=== PATIENT | male | born 1990 ===

== ENCOUNTER 2024-01-10 09:25 | Emergency (ER) | payer OTHER ==
[~2024-01-10] VITALS: Ht 177.8 cm; Wt 129.3 kg
[2024-01-10] MEDS ORDERED: AMPDEX5 PO (10:28)
[2024-01-10 13:00] VITALS: BP 124/71
[2024-01-10] MEDS ORDERED: Ketorolac Tromethamine 15mg Vial IV ONE (13:00)
[2024-01-10] MEDS ORDERED: Prochlorperazine Edisylate 10 mg Vial IV ONE (13:00)
== END 2024-01-10 13:20 | disposition home or self-care (01) ==
LOC: ER 09:25
DX: S06.0XAA Concussion with loss of consciousness status unknown, initial encounter (principal); W22.8XXA Striking against or struck by other objects, initial encounter; Z79.899 Other long term (current) drug therapy
CPT/HCPCS: 70450; 70498; 96374-59; 96375; 99284-25; J0780; J1885; Q9967

== ENCOUNTER → 2024-12-02 | Outpatient (CLI) | payer OTHER ==
[~2024-12-02] MED LIST: AMPDEX5 PO
[2024-12-02 11:10] LABS: BASOPHILS ABSOLUTE AUTO 0.02 K/mm3 (0.00-0.23); BASOPHILS PERCENT AUTO 0 % (0-2); EOSINOPHILS ABSOLUTE AUTO 0.04 K/mm3 (0.00-0.68); EOSINOPHILS PERCENT AUTO 1 % (0-6); Hematocrit 52.1 % (37.0-53.0); Hemoglobin 17.6 g/dL (13.5-17.5); IMMATURE GRAN ABSOLUTE AUTO 0.02 K/mm3 (0.00-0.10); IMMATURE GRAN PERCENT AUTO 0 % (0-1); LYMPHOCYTES ABSOLUTE AUTO 0.93 K/mm3 (0.84-5.20); LYMPHOCYTES PERCENT AUTO 13 % (21-46); MONOCYTES ABSOLUTE AUTO 0.48 K/mm3 (0.16-1.47); MONOCYTES PERCENT AUTO 7 % (4-13); Mean Corpuscular HGB 29.3 pg (26.0-34.0); Mean Corpuscular HGB Conc 33.8 g/dL (31.5-36.5); Mean Corpuscular Volume 87 fL (80-100); NEUTROPHILS ABSOLUTE AUTO 5.62 K/mm3 (1.96-9.15); NEUTROPHILS PERCENT AUTO 79 % (41-73); Platelet Count 207 K/mm3 (150-400); RDW Coefficient Variation 13.6 % (11.7-14.2); White Blood Cell Count 7.11 K/mm3 (4.00-11.30)
[2024-12-02 11:27] LABS: Albumin, Blood 4.1 g/dL (3.4-5.0); Albumin/Globulin Ratio 0.9 (0.8-1.8); Bilirubin, Total 0.9 mg/dL (0.1-1.0); Bun/Creatinine Ratio 6.7 (12.0-20.0); Calcium, Blood 9.5 mg/dL (8.5-10.1); Creatinine, Blood 1.04 mg/dL (0.60-1.20); Globulin, Blood 4.4 g/dL (2.2-4.0); Potassium, Blood 3.9 mmol/L (3.5-5.5); Total Protein, Blood 8.5 g/dL (6.4-8.2)
[2024-12-02 15:47] LABS: Adenovirus F 40/41 Not Detected (NOT DETECT); Astrovirus Detected (NOT DETECT); Campylobacter Sp Not Detected (NOT DETECT); Cryptosporidium Not Detected (NOT DETECT); Cyclospora Cayetanensis Not Detected (NOT DETECT); E. Coli O157 Not Detected (NOT DETECT); Entamoeba Histolytica Not Detected (NOT DETECT); Enteroaggregative E. coli-EAEC Not Detected (NOT DETECT); Enteropathogenic E. coli-EPEC Not Detected (NOT DETECT); Enterotoxigenic E. coli-ETEC Not Detected (NOT DETECT); Giardia Lamblia Not Detected (NOT DETECT); Norovirus GI/GII Not Detected (NOT DETECT); Plesiomonas Shigelloides Not Detected (NOT DETECT); Rotavirus A Not Detected (NOT DETECT); Salmonella Sp Not Detected (NOT DETECT); Sapovirus Not Detected (NOT DETECT); Shiga Toxin-prod E. coli-STEC Not Detected (NOT DETECT); Shigella/Enteroin E. coli-EIEC Not Detected (NOT DETECT); Vibrio Cholerae Not Detected (NOT DETECT); Vibrio Sp Not Detected (NOT DETECT); Yersinia Enterocolitica Not Detected (NOT DETECT)
== END ==
LOC: LAB 11:01 → LAB SHORT 11:01
PROVIDERS: Physician Assistant
DX: R10.13 Epigastric pain (principal); R11.2 Nausea with vomiting, unspecified; R19.7 Diarrhea, unspecified
CPT/HCPCS: 80053; 83690; 85025; 87507

== ENCOUNTER 2025-03-18 16:09 | Emergency (ER) | payer OTHER ==
[~2025-03-18] VITALS: Ht 175.3 cm; Wt 111.1 kg
[2025-03-18 16:39] LABS: BASOPHILS ABSOLUTE AUTO 0.05 K/mm3 (0.00-0.23); BASOPHILS PERCENT AUTO 1 % (0-2); EOSINOPHILS ABSOLUTE AUTO 0.18 K/mm3 (0.00-0.68); EOSINOPHILS PERCENT AUTO 2 % (0-6); Hematocrit 46.5 % (37.0-53.0); Hemoglobin 15.7 g/dL (13.5-17.5); IMMATURE GRAN ABSOLUTE AUTO 0.02 K/mm3 (0.00-0.10); IMMATURE GRAN PERCENT AUTO 0 % (0-1); LYMPHOCYTES ABSOLUTE AUTO 2.20 K/mm3 (0.84-5.20); LYMPHOCYTES PERCENT AUTO 24 % (21-46); MONOCYTES ABSOLUTE AUTO 0.67 K/mm3 (0.16-1.47); MONOCYTES PERCENT AUTO 7 % (4-13); Mean Corpuscular HGB Conc 33.8 g/dL (31.5-36.5); Mean Corpuscular Volume 86 fL (80-100); NEUTROPHILS ABSOLUTE AUTO 6.09 K/mm3 (1.96-9.15); NEUTROPHILS PERCENT AUTO 66 % (41-73); NRBC ABSOLUTE 0.00 K/mm3 (0.00-0.02); NRBC Auto 0.0 /100 WBC (0.0-0.2); Platelet Count 246 K/mm3 (150-400); RDW Coefficient Variation 13.1 % (11.7-14.2); RDW Standard Deviation 40.2 fL (35.1-46.3)
[2025-03-18 17:03] LABS: Alanine Aminotransfer (ALT/SGP 39.0 U/L (12-78); Albumin, Blood 3.8 g/dL (3.4-5.0); Albumin/Globulin Ratio 1.1 (0.8-1.8); Anion Gap 9.0 mmol/L (3-11); Aspartate Aminotrans (AST/SGOT 37.0 U/L (12-37); Bilirubin, Total 0.7 mg/dL (0.1-1.0); Blood Urea Nitrogen 9.0 mg/dL (8-24); CO2, Blood 25.0 mmol/L (21-32); Calcium, Blood 9.1 mg/dL (8.5-10.1); Chloride, Blood 107.0 mmol/L (98-108); Creatinine, Blood 0.91 mg/dL (0.60-1.20); Globulin, Blood 3.6 g/dL (2.2-4.0); Glucose, Blood 94.0 mg/dL (70-99); Potassium, Blood 3.9 mmol/L (3.5-5.5); Sodium, Blood 137.0 mmol/L (136-145); Total Protein, Blood 7.4 g/dL (6.4-8.2)
[2025-03-18] MEDS ORDERED: Lidocaine 2% Viscous Soln 15 ML UDC PO ONE (17:25)
[2025-03-18 19:00] VITALS: BP 145/91
[2025-03-18] MEDS ORDERED: Pepcid40 MG PO (19:14)
== END 2025-03-18 19:22 | disposition home or self-care (01) ==
LOC: ER 16:09
PROVIDERS: Student in an Organized Health Care Education/Training Program
DX: R07.2 Precordial pain (principal); Z79.899 Other long term (current) drug therapy
CPT/HCPCS: 71046; 76705; 80053; 83690; 84484; 85025; 93005; 93010; 99284-25; A9270

== ENCOUNTER 2025-05-18 11:41 | Day surgery (SDC) | payer OTHER ==
[~2025-05-18] VITALS: Ht 175.3 cm; Wt 116.3 kg
[~2025-05-18 11:41] MED LIST changes: +Lidocaine 1%-Epineph 1:100000 20 ML MDV ONE; +NS 0 ML IV ONE; +Pepcid40 MG PO
[2025-05-18] MEDS ORDERED: VYVANSE40 MG PO (12:01)
[2025-05-18] MEDS ORDERED: Midazolam HCl 1MG / ML 2ML Vial ONE ×2 (12:26→12:55)
--- NOTE | 2025-05-18 13:21 | NUR ---
05/18/25 1321 Ailin Thao 1210: PT INFORMED OF BEHIND SCHEDULE AT THIS TIME. CALL LIGHT IN REACH, NO NEEDS AT THIS THIME. 1252: BROUGHT TO ROOM, NO ADDITIONAL NEEDS AT THIS TIME.
[2025-05-18 15:12] VITALS: BP 105/73
--- NOTE | 2025-05-18 15:22 | NUR ---
05/18/25 1522 Marin Ruvalcaba PT'S MONITOR DISPLAYED HR 140-150 IN SDU FOR LESS THAN 20 SECONDS. PT STATED HE "MIGHT" HAVE FELT A SLIGHT TIGHTNESS IN HIS CHEST AT THAT TIME BUT DENIED OTHER SYMPTOMS, INCLUDING CP, SOB, DIZZINESS, WEAKNESS, NAUSEA, AND OTHER SYMPTOMS. APICAL PULSE WAS ASCULTATED AND FOUND TO BE REGULAR AT 74 BPM. CELSO DSOUZA WAS CONSULTED AND APPROVED D/C. PT WAS INSTRUCTED TO SEEK IMMEDIATE EMERGENCY MEDICAL CARE FOR ANY OF THE AFOREMENTIONED SYMPTOMS. PT REPORTED TOLERABLE 2/10 VIRK IN SDU THAT IMPROVED AFTER EATING SNACKS. HE STATED THAT HE FREQUENTLY GETS VIRK AT HOME SINCE HAVING A CONCUSSION. HE IS ALSO A REGULAR COFFEE DRINKER AND HAS NOT CONSUMED CAFFEIENE TODAY. PT OTHERWISE DENIED PAIN. HE APPEARED ALERT AND RELAXED AND EXPRESSED EAGERNESS TO RETURN HOME.
== END 2025-05-18 15:02 | disposition home or self-care (01) ==
LOC: ORSCSDS 11:41
PROVIDERS: Orthopaedic Surgery
PROC: 01N54ZZ Release Median Nerve, Percutaneous Endoscopic Approach (ICD-10-PCS; principal; 2025-05-18 13:00)
DX: G56.03 Carpal tunnel syndrome, bilateral upper limbs (principal); F41.9 Anxiety disorder, unspecified; E66.9 Obesity, unspecified; Z68.37 Body mass index [BMI] 37.0-37.9, adult
CPT/HCPCS: J2250; J7040; J7120